=== PATIENT | female | born 1980 | race Caucasian/White ===

== ENCOUNTER 2025-08-10 15:31 | Emergency (ER) | payer OTHER ==
[2025-08-10] MEDS ORDERED: Ketorolac Tromethamine 30 MG (1 mL) VIAL ONE (16:03)
[2025-08-10] MEDS ORDERED: Cyclobenzaprine 10 MG TAB ONE (16:03)
== END 2025-08-10 16:20 | disposition home or self-care (01) ==
LOC: CSHERS 15:31
DX: G89.29 Other chronic pain (principal); M54.50 Low back pain, unspecified; Y04.0XXA Assault by unarmed brawl or fight, initial encounter
CPT/HCPCS: 96372; 99283; J1885